=== PATIENT | male | born 1955 | race Caucasian/White ===

== ENCOUNTER 2018-10-12 09:13 | Outpatient (CLI) | payer OTHER ==
--- NOTE | 2018-10-18 16:17 | CONSULTATION REPORT ---
CHIEF COMPLAINT: 1. Low back pain. 2. Right shoulder pain. HISTORY OF PRESENT ILLNESS: Mr. Leach is a 62-year-old male patient here for evaluation of his low back pain and his right shoulder pain. His back pain started in around the year 1995 and did not occur as a result of an injury. His back pain has been progressive in nature. He started working with his father in [place] at the age of 8 and has continued working in [place]. He was evaluated in 1997 and had his first fusion without improvement in his pain symptoms. In the year 1999, he had a second surgery, where they removed some of the old hardware and revised his fusion. His fusion is from L3 to L5. The patient has done physical therapy in the past, participated in health care specialist and did well with that. He has not had acupuncture. His pain is worsened with prolonged sitting, standing or walking. His pain improves with lying flat, repositioning. He continues the pain medications however, he does not feel that they are improving his pain symptoms. His low back pain is described as constant, aching, throbbing, sharp and shooting at times. He does have radiation posteriorly down the right lower extremity to the knee. The patient has numbness and tingling in bilateral calves and numbness in bilateral feet. The patient denies any lower extremity weakness, urinary or bowel incontinence or saddle anesthesia. Dr. Chou was seeing the patient for his pain in [place], [place]. Unfortunately, they are losing a mid-level provider and had to decrease their patient population and Mr. Leach is one of the patients that they are discharging. They did provide the patient with three months-worth of his medications. He has a little over two months left. At present he continues on OxyContin 20 mg q.h.s. and oxycodone 10 mg up to q.i.d. p.r.n. pain. The patient is also complaining of right shoulder pain that has been worse over the last year. He actually is telling me today that his right shoulder pain is worse than his back pain. He has had no known injury to that right shoulder. He does continue [place] work, however, which he has to do a lot of heavy lifting with. The pain is in the front of his shoulder, described as constant aching to sharp shooting. He denies any radiation, swelling, weakness or numbness and tingling. The shoulder pain is causing him to have difficulty with sleeping. The patient was seeing an orthopedist in [place] who did try injections, however, the patient did not feel these worked well. The patient was set up for a CT arthrogram and had the dye injected into his shoulder, however, left 5 to 10 minutes prior to the CT being done as he could not lie there on the flat table any longer. He has had no followup since then. His pain is worsened with overhead activity and trying to sleep. The patient reports that nothing really improves his pain except for rest at this point. PAST MEDICAL HISTORY: Includes chronic low back pain with history of spondylosis and fusion of the L3 through L5 around 1999, right shoulder pain, idiopathic peripheral neuropathy primarily affecting the lower extremities, paroxysmal atrial fibrillation currently treated with aspirin only. History of provoked PE, not currently anticoagulated, hypertension, hyperlipidemia, current thyroid nodules for which fine needle aspiration/biopsy has been recommended, however, not pursued by the patient, BPH, ADD, borderline personality disorder, anxiety, major depressive disorder with previous suicide attempts. PAST SURGICAL HISTORY: Includes lumbar fusion in [address] Grullon. Removal of hardware and revision of fusion from L3 to L5 in [address] Dobbins, right total hip replacement in [address] Bellamy and a cholecystectomy in 2008. SOCIAL HISTORY: Tobacco, never a smoker. ETOH occasionally, social, mostly beer. Recreational drug, denies. Occupation works as a bunny. Marital status is . CURRENT MEDICATIONS: Include aspirin 81 mg one p.o. daily, Lyrica 100 mg one p.o. b.i.d., Flomax 0.4 mg p.o. daily, Flexeril 10 mg one tab p.o. b.i.d. p.r.n. muscle spasm, OxyContin 20 mg q.h.s., oxycodone 10 mg one tab q.i.d. p.r.n. breakthrough pain, Wellbutrin XL 150 mg one p.o. q.day and vitamin D 400 mg (frequency is not noted on intake). ALLERGIES: Abilify REVIEW OF SYSTEMS: Please see scanned full review of systems as pertinent to this visit. Musculoskeletal: he has joint pain, joint stiffness, muscle spasms and low back pain. Neurologic: he has numbness and tingling. OBJECTIVE: General: This is an elderly male patient presenting in no acute distress. Vital Signs: The patient is 5 feet, 11 inches tall. His weight is 230 pounds, pulse is 94, respiratory rate 20, blood pressure 155/85 with an SaO2 of 98% on room air. He is rating his pain at 6/10 today. Psych: He is alert and oriented x3. He seems very anxious throughout the interview and visit and is very fidgety. HEENT: He is normocephalic and atraumatic with no gross abnormalities. Pupils are equal and round with no miosis, there is no cervical adenopathy, trachea is midline. Cardiovascular: Normal S1, S2, regular rate and rhythm. No gallops rubs or murmurs. No lower extremity edema. Pulmonary: Nonlabored respirations at rest. He is clear to auscultation throughout all lobes bilaterally. GI: Bowel sounds are present in all four quadrants. Abdomen is soft, nondistended and nontender without organomegaly. : Deferred. Musculoskeletal: On exam of the right shoulder the patient is able to achieve 180 degrees flexion with pain at the level of the shoulder for which he can get past. Abduction is decreased to 120 degrees however, he is also limited in abduction on the left side to 130 degrees. External rotation is to the base of the neck, internal rotation is to the belt line. He has a negative empty can test. He has tenderness to palpation over the anterior joint. There is no obvious swelling or effusions. Spine: There is no gross abnormalities or deformities of the spine. On trunk flexion the patient is able to achieve full flexion and full trunk extension. Bilateral Euceda's is positive for axial low back pain only. The patient is diffusely tender to palpation over the lumbar spinous processes and lumbar facets. The patient is nontender over sacral sulci. Bilateral lower extremities strength is equal and strong. All areas graded 5/5 in hip flexion, knee extension, knee flexion, dorsiflexion and plantarflexion. Deep tendon reflexes are 2+ at bilateral patellae. Sensation is diminished in bilateral feet. Seated straight leg raise was negative for back pain. Neurologic: Cranial nerves II through XII are grossly intact. The patient walks with a steady gait unassisted. IMPRESSION: 1. Right shoulder pain. 2. Chronic lumbago. 3. Lumbar radiculopathy versus radiculitis. PLAN: 1. I ordered a right shoulder x-ray. 2. Lumbar x-ray series to include flexion, extension. 3. AP pelvis x-ray. 4. Right shoulder injection with Dr. Sanabria. 5. I discussed updating his lumbar MRI, however, the patient reports that he will be unable to complete this related to claustrophobia without anesthesia. 6. In regards to Dr. Garcia's suggestion of weaning the patient's current medication, I am in agreement with this, however I also do not have the ability to prescribe Suboxone and neither does either of the physicians that I am working with at present at this clinic. I did discuss at length with the patient trying to decrease his medications slowly. However, the patient feels that he will experience too much withdrawal symptoms and indicates to me that he will need Suboxone. I am going to discuss this with the physicians, and we are trying to locate a place close by for which he can be prescribed Suboxone while we are weaning his opiates. He may have to go to [place] for this. 7. The patient is to follow up in one month or sooner if needed. He does have plenty of opiate pain medications for approximately the next two months. The patient verbalizes understanding and agrees to the current treatment plan. Vicky Kwan NP Nurse Practitioner (Dictated/not signed) /[employer] [id number] JOB#: [id number] [email or web address] cc: Dewayne Garcia MD [facility] CATHERINE
== END 2018-10-12 09:43 ==
LOC: OUT 09:13
PROVIDERS: ATTEND Nurse Practitioner Adult Health
DX: M25.511 Pain in right shoulder (principal); G89.29 Other chronic pain; M54.5 Low back pain
CPT/HCPCS: 99202

== ENCOUNTER 2018-10-31 13:42 | Outpatient (CLI) | payer OTHER ==
--- NOTE | 2018-11-01 16:42 | Diagnostic Imaging Report ---
OVIDIO JARRETT [facility] [address] [facility].[address] [id number] Report Submission Date: Oct 31, 2018 2:20:33 PM CDT Patient Study Name: GLENN DENISE Date: Oct 31, 2018 1:42:56 PM CDT Modality Type: DX Gender: M Description: L SPINE 6 VIEWS : 51 Institution: [facility] Physician: OVIDIO JARRETT Exam: Lumbar spine. History: Pain. AP, lateral, both oblique views and L5-S1 spot view of the lumbar spine are submitted. Laminectomy defects at L4 and L5 levels are noted. The vertebral body heights are adequately maintained. A grade 1 spondylolisthesis of L4 on L5 is noted. No spondylolysis is identified. Pedicles are intact. Impression: Postoperative changes at L4 on L5. Grade 1 spondylolisthesis of L4 on L5. No acute fracture is noted. Electronically signed on Oct 31, 2018 2:20:33 PM CDT by: Jonathan ALEXANDER
--- NOTE | 2018-11-01 16:42 | Diagnostic Imaging Report ---
OVIDIO JARRETT [facility] [address] [facility].[address] [address] Report Submission Date: Oct 31, 2018 2:18:37 PM CDT Patient Study Name: GLENN DENISE Date: Oct 31, 2018 1:42:56 PM CDT Modality Type: DX Gender: M Description: PELVIS AP 1 OR 2 VIEWS : 51 Institution: [facility] Physician: OVIDIO JARRETT Exam: AP pelvis. History: Pain. No previous studies are available for comparison. An orthopedic device replaces the right hip joint. Narrowing, sclerosis and spurring at the left hip joint is noted. No acute fracture is seen. No other soft tissue abnormalities are identified. Impression: An orthopedic device replaces the right hip joint. Arthritic changes in the left hip joint. Electronically signed on Oct 31, 2018 2:18:37 PM CDT by: Jonathan ALEXANDER
--- NOTE | 2018-11-01 16:43 | Diagnostic Imaging Report ---
OVIDIO JARRETT [facility] [address] [facility].[address] [address] Report Submission Date: Oct 31, 2018 2:19:32 PM CDT Patient Study Name: GLENN DENISE Date: Oct 31, 2018 1:42:56 PM CDT Modality Type: DX Gender: M Description: SHOULDER 2 VIEWS OR MORE : 51 Institution: [facility] Physician: OVIDIO JARRETT Exam: Right shoulder. History: Pain. AP views of the right shoulder in internal and external rotation are submitted along with Y-view. No previous studies are available for comparison. Metallic artifacts adjacent to the acromioclavicular joint is noted. Narrowing, sclerosis and spurring at the acromioclavicular joint and at the glenohumeral joint is noted. No acute fracture or dislocations are seen. Impression: Metallic artifacts adjacent to the acromioclavicular joints. Degenerative changes at the acromioclavicular joint and glenohumeral joint are noted. Electronically signed on Oct 31, 2018 2:19:32 PM CDT by: Jonathan ALEXANDER
== END 2018-10-31 13:44 ==
LOC: RAD 13:42
PROVIDERS: ATTEND Nurse Practitioner Adult Health
DX: M19.011 Primary osteoarthritis, right shoulder (principal); M54.16 Radiculopathy, lumbar region
CPT/HCPCS: 72170; 73030